=== PATIENT | female | born 1995 | race Two or more races ===

== ENCOUNTER 2016-11-04 10:54 | Inpatient (IN) | payer MEDICAID ==
[~2016-11-04] VITALS: Ht 160 cm; Wt 83.0 kg
--- NOTE | ~2016-11-04 | OR ---
PATIENT'S NAME: BLANCA MCCLENDON [facility] AGE: 21 Y [address] ROOM: [place] [id number] LOCATION: GOBS ADMIT DATE: 11/04/2016 OR/Procedure Report DISCHARGE DATE: FAMILY PHYSICIAN: Neida Chaves MD ATTENDING PHYSICIAN: Neida Chaves SURGEON: Ronda Godfrey MD PLATFORM MAN: DATE OF PROCEDURE: 11/04/2016 DIAGNOSES: 1. Spontaneous vaginal delivery of a term female. 2. Artificial rupture of membranes. 3. Second-degree repair. 4. Labor epidural. HOSPITAL COURSE: The patient is a 21-year-old, 1, para 0, at 40 and 2/7th weeks who came in spontaneous labor today. She was found to be 3 to 4 cm in the office, was sent over for evaluation. At 4 cm, the patient had, i.e., did artificial rupture of membranes with bloody fluid as result. heart tones remained 140s and reactive throughout this days. Labor epidural was placed. The patient progressed to 7, 9, and then complete. With expulsion efforts, baby was delivered in a SHAWNA presentation. Head was delivered, shoulders, baby was suctioned, cord was doubly clamped. Cord was cut by the grandmother. Baby was then laid on mom's abdomen with nursery personnel assisting. Cord blood and cord pH were obtained. Placenta delivered spontaneously and intact. There was a second-degree tear that was repaired with 3-0 Vicryl in routine fashion. The patient did have increased bleeding, so one dose of Methergine was given IM in right thigh. Baby was a female, weighing 8 pounds 3 ounces. score 7 at 1 minute, 9 at 5 minutes. At this time, both mom and baby are doing well and bleeding was controlled. MD INNA LORENZO/lashae /[id number] d: 11/04/16 7670 t: 11/12/16 1529, OPERATIVE SUMMARY
[2016-11-04] MEDS ORDERED: PRENATAL 1+1)(P1 TAB PO (11:29)
[2016-11-04 12:06] LABS: BASOPHIL % 0.1 %; EOSINOPHIL % 0.2 %; HEMATOCRIT 33.4 % (33.0-46.0); HEMOGLOBIN 11.2 g/dL (11.0-15.0); IMMATURE GRANULOCYTE # 0.1 K/uL (0.0-0.3); IMMATURE GRANULOCYTE % 0.5 %; LYMPHOCYTE % 11.2 %; MCH 28.1 pg (27.0-34.0); MCHC 33.5 gm/dL (32.0-36.5); MCV 83.7 fl (83.0-98.0); MONOCYTE # 0.5 K/uL (0.0-1.0); MONOCYTE % 5.2 %; MPV 12.1 fl (9.4-12.4); NEUTROPHIL # (ANC) 7.6 K/uL (1.8-7.8); NEUTROPHIL % 82.8 %; NRBC % 0 /100WBC (0-0.00); PLATELET COUNT 190 K/uL (150-450); RBC 3.99 M/uL (3.50-5.00); RDW-CV 14.5 % (11.9-14.6); WBC 9.2 K/uL (4.0-11.0)
[2016-11-04 18:23] LABS: PCO2 41 mmHg (35-45)
[2016-11-04 18:24] LABS: BICARBONATE 18.2 mmol/L (18.0-23.0); PO2 19 mmHg (80-90)
--- NOTE | 2016-11-05 04:22 | NUR ---
Significant Event: VSS. MOTRIN GIVEN AT 1905 WITH RELIEF. DENIES NEED FOR PAIN MEDICATION. FUNDUS IS FIRM, EVEN AND MIDLINE. VOIDING WITHOUT DIFFICULTY. PATIENT DID HAVE TEMP OF 101.2 BUT NOW IS 98.2. PATIENT NEEDS ENCOURAGEMENT WITH Follow up:
[2016-11-05 04:26] LABS: BASOPHIL % 0.1 %; EOSINOPHIL % 0.1 %; HEMOGLOBIN 8.5 g/dL (11.0-15.0); IMMATURE GRANULOCYTE # 0.1 K/uL (0.0-0.3); IMMATURE GRANULOCYTE % 0.4 %; LYMPHOCYTE % 13.5 %; MCH 27.8 pg (27.0-34.0); MCHC 33.2 gm/dL (32.0-36.5); MCV 83.7 fl (83.0-98.0); MONOCYTE # 1.2 K/uL (0.0-1.0); NEUTROPHIL # (ANC) 11.4 K/uL (1.8-7.8); NEUTROPHIL % 77.9 %; NRBC % 0 /100WBC (0-0.00); PLATELET COUNT 181 K/uL (150-450); RBC 3.06 M/uL (3.50-5.00); RDW-CV 14.6 % (11.9-14.6); WBC 14.7 K/uL (4.0-11.0)
[2016-11-05 04:29] LABS: HEMATOCRIT 25.6 % (33.0-46.0)
--- NOTE | 2016-11-05 14:26 | NUR ---
Met with mom and significant other Ace at bedside today. Introduced myself and the role of the CM department. Mom and dad indicate they have all necessary items for baby Rosa at home. Mom will be staying with her mom for the first week and then she will return to her home with Ace. Mom and dad state they have a lot of supports. Instructed mom to contact Medicaid and notify them of baby's . Also discussed signs and symptoms of post depression with her and provided her with the handout on this topic. Provided Ace with a letter for work stating he was at the hospital on November 04 and for the of his daughter. He plans to return to work tonight. Parents deny any other needs or any concerns with discharge. Will continue to follow while here.
[2016-11-05 14:56] LABS: HEMATOCRIT 22.9 % (33.0-46.0)
[2016-11-05 14:57] LABS: HEMOGLOBIN 7.6 g/dL (11.0-15.0)
[2016-11-06 05:29] LABS: HEMATOCRIT 20.7 % (33.0-46.0)
[2016-11-06 05:38] LABS: HEMOGLOBIN 6.7 g/dL (11.0-15.0)
[2016-11-06] MEDS ORDERED: SURFAK240 MG PO (12:55)
[2016-11-06] MEDS ORDERED: DERMOPLAST SPRA56 GM TOP (12:56)
[2016-11-06] MEDS ORDERED: ACETAMINOPHEN325 MG PO (12:56)
[2016-11-06] MEDS ORDERED: MOTRIN800 MG PO (12:56)
[2016-11-06] MEDS ORDERED: FEOSOL325 MG PO (12:57)
[2016-11-06 14:19] LABS: HEMATOCRIT 20.9 % (33.0-46.0); HEMOGLOBIN 6.7 g/dL (11.0-15.0)
== END 2016-11-06 15:15 | disposition disaster alternative care site (69) | DRG 774 ==
LOC: GOBM 10:54 → GOBS 10:54 → GOBM 10:55 → GOBS 10:55
PROVIDERS: Family Medicine; ADMIT Family Medicine
PROC: 10907ZC Drainage of Amniotic Fluid, Therapeutic from Products of Conception, Via Natural or Artificial Opening (ICD-10-PCS; principal; 2016-11-04)
PROC: 10E0XZZ Delivery of Products of Conception, External Approach (ICD-10-PCS; principal; 2016-11-04)
PROC: 0KQM0ZZ Repair Perineum Muscle, Open Approach (ICD-10-PCS; principal; 2016-11-04)
DX: O48.0 Post-term pregnancy (principal); O72.1 Other immediate postpartum hemorrhage; O70.1 Second degree perineal laceration during delivery; O90.81 Anemia of the puerperium; D64.9 Anemia, unspecified; Z3A.40 40 weeks gestation of pregnancy; Z37.0 Single live birth
CPT/HCPCS: J2001; J2210; J2590; J3010; J7120